=== PATIENT | male | born 1980 | race Caucasian/White ===

== ENCOUNTER 2023-12-20 20:09 | Emergency (ER) | payer OTHER, SELFPAY ==
[2023-12-20 20:15] VITALS: BP 132/102; PULSE 120; TEMP 36.8; O2SAT 97; BMI 23.7
--- NOTE | 2023-12-20 20:53 | XR_ITS ---
The [address] [address] Patient Name: MUNIR SMITH MRN: [id number] date: 1980 Sex: M Assigned Patient Location: ER Current Patient Location: ER Accession/Order Number: [id number] Exam Date: 12/20/2023 21:12 Report Date: 12/20/2023 22:24 At the request of: NICHOLAS SHAFER Procedure: XR calcaneus RT min 2V RIGHT CALCANEUS X-RAYS, 12/20/2023. HISTORY: Pain in heel. COMPARISON: None. FINDINGS: 2 views obtained. The calcaneus is normal. No calcaneal fracture. No radiopaque foreign body. No soft tissue gas. No soft tissue swelling. XR/XR calcaneus RT min 2V IMPRESSION: The calcaneus is normal. No radiopaque foreign bodies, soft tissue swelling or soft tissue gas. Electronically authenticated by: JAVIER TORRES Date: 12/20/2023 22:24
--- NOTE | 2023-12-20 21:01 | XR_ITS ---
The [address] [address] Patient Name: MUNIR SMITH MRN: [id number] date: 1980 Sex: M Assigned Patient Location: ER Current Patient Location: ER Accession/Order Number: [id number] Exam Date: 12/20/2023 21:12 Report Date: 12/20/2023 22:24 At the request of: NICHOLAS SHAFER Procedure: XR tibia fibula LT 2V LEFT TIBIA-FIBULA X-RAYS, 12/20/2023. HISTORY: Leg pain. COMPARISON: None. FINDINGS: AP and lateral views of the left tibia and fibula obtained. There is internal fixation hardware in the tibia. There is an intramedullary imani extending the length of the tibia fixated proximally and distally with horizontal screws. Hardware is intact. There is an old healed fracture of the tibial diaphysis. There are old healed fractures of the fibular diaphysis. No acute fracture of the tibia or fibula identified. XR/XR tibia fibula LT 2V IMPRESSION: 1. There are old healed fractures of the tibia and fibula. There is internal fixation hardware in the tibia that is intact. 2. No new fractures. No soft tissue swelling, soft tissue gas or radiopaque foreign bodies. Electronically authenticated by: JAVIER TORRES Date: 12/20/2023 22:24
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
[2023-12-20 21:33] VITALS: BP 141/99; PULSE 70; O2SAT 97
[2023-12-20] MEDS: KETOROLAC TROMETHAMINE 60 MG/2 ML VIAL IM (21:34)
== END 2023-12-20 21:54 | disposition home or self-care (01) ==
PROVIDERS: Emergency Provider Emergency Medicine; PCP Nurse Practitioner Family
DX: M79.604 Pain in right leg (principal); M79.671 Pain in right foot
CPT/HCPCS: 73590; 73650; 96372; 99284; J1885